=== PATIENT | female | born 1955 | race Caucasian/White ===

== ENCOUNTER 2016-10-20 04:37 | Emergency (ER) | payer BC ==
[~2016-10-20] VITALS: Ht 162.6 cm; Wt 68.2 kg
[~2016-10-20 04:37] MED LIST: ALBUTEROL SULFAT3 M3 IH; ATROVENT I0.2 MG/1 M IH; BENICAR40 MG PO; LIPITOR 10MG10 MG PO; ZITHROMAX Z PA250 MG PO
[2016-10-20 04:44] VITALS: BP 167/117; TEMP 98.7
[2016-10-20] MEDS ORDERED: ASPIRIN 81M81 MG/TA2 PO (04:52)
[2016-10-20] MEDS ORDERED: CALAN120 MG PO (04:53)
[2016-10-20] MEDS ORDERED: RT SPIRIVA18 MCG IH (04:54)
[2016-10-20] MEDS ORDERED: PREDNISONE10 MG PO (04:54)
[2016-10-20] MEDS ORDERED: EDARB4012.5TAB PO (04:54)
[2016-10-20] MEDS ORDERED: ZYRTEC 10MG10 MG PO (04:55)
[2016-10-20] MEDS ORDERED: PRAVACHOL 20MG20 MG PO (04:56)
[2016-10-20] MEDS ORDERED: SINGULAIR 110 MG/TAB PO (04:56)
[2016-10-20] MEDS ORDERED: PROTONIX 40MG T40 MG PO (04:57)
[2016-10-20] MEDS ORDERED: PAMELOR 25MG25 MG PO (04:58)
[2016-10-20 05:31] LABS: INFLUENZA B NEGATIVE
[2016-10-20 05:31] LABS: BASO % 0.4 % (0.0-2.0); EOS # 0.1 (0.0-0.7); EOS % 1.3 % (0-4.0); GRAN # 4.8 (1.4-6.5); GRAN % 64.6 % (42.2-75.2); HEMATOCRIT 43.9 % (37.0-47.0); HEMOGLOBIN 14.9 g/dl (12.5-16.0); LYMPH # 1.6 (1.2-3.4); LYMPH % 21.8 % (20.0-51.0); MEAN CELL VOLUME 95 fl (80.0-100.0); MEAN CORPUSCULAR HEMOGLOBIN 32 pg (27.0-31.0); MEAN CORPUSCULAR HGB CONC 34 g/dl (33.0-37.0); MEAN PLATELET VOLUME 10.1 fl (7.4-10.4); MONO # 0.9 (0.1-0.6); MONO % 11.6 % (1.7-9.3); PLATELET COUNT 209 K/mm3 (130-400); RED BLOOD COUNT 4.64 M/mm3 (4.10-5.30); REDCELL DISTRIBUTION WIDTH-CV 13.1 % (11.5-14.5); WHITE BLOOD COUNT 7.4 K/mm3 (4.8-10.8)
[2016-10-20 05:57] VITALS: PULSE 79
[2016-10-20] MEDS ORDERED: PHENERGAN W/CO120 M1 PO (06:27)
[2016-10-20] MEDS ORDERED: PREDNISONE20 MG PO (06:27)
[2016-10-20] MEDS ORDERED: DOXYCYCLINE 10100 MG PO (06:27)
== END 2016-10-20 07:06 | disposition home or self-care (01) ==
LOC: COL.ER 04:37
PROVIDERS: Emergency Medicine
DX: J20.9 Acute bronchitis, unspecified (principal); I10 Essential (primary) hypertension; F17.210 Nicotine dependence, cigarettes, uncomplicated; R09.02 Hypoxemia
CPT/HCPCS: J7512

== ENCOUNTER 2017-02-15 19:22 | Emergency (ER) | payer BC ==
[~2017-02-15] VITALS: Ht 162.6 cm; Wt 68.2 kg
[~2017-02-15 19:22] MED LIST changes: +ASPIRIN 81M81 MG/TA2 PO; +CALAN120 MG PO; +DOXYCYCLINE 10100 MG PO; +EDARB4012.5TAB PO; +PAMELOR 25MG25 MG PO; +PHENERGAN W/CO120 M1 PO; +PRAVACHOL 20MG20 MG PO; +PREDNISONE10 MG PO; +PREDNISONE20 MG PO; +PROTONIX 40MG T40 MG PO; +RT SPIRIVA18 MCG IH; +SINGULAIR 110 MG/TAB PO; +ZYRTEC 10MG10 MG PO
[2017-02-15 19:24] VITALS: BP 176/102; TEMP 97.5
[2017-02-15] MEDS ORDERED: NORCO 325 MG-51 TAB PO (20:36)
[2017-02-15] MEDS ORDERED: FLEXERIL 1010 MG/TAB PO (20:36)
[2017-02-15 20:49] VITALS: PULSE 74
== END 2017-02-15 20:57 | disposition home or self-care (01) ==
LOC: COL.ER 19:22
DX: M54.41 Lumbago with sciatica, right side (principal); I10 Essential (primary) hypertension; F17.210 Nicotine dependence, cigarettes, uncomplicated
CPT/HCPCS: J1885; J2360

== ENCOUNTER 2017-03-05 08:55 | Outpatient (CLI) | payer BC ==
[2017-03-05] VITALS (7 sets, daily range): BP systolic 139–203; BP diastolic 83–107; PULSE 59–78; TEMP 98.1–98.5
[~2017-03-05] VITALS: Ht 162.6 cm; Wt 68.0 kg
[~2017-03-05 08:55] MED LIST changes: +FLEXERIL 1010 MG/TAB PO; +NORCO 325 MG-51 TAB PO
[2017-03-05] MEDS ORDERED: PERCOCET 325 MG1 TA2 PO (09:10)
[2017-03-05] MEDS ORDERED: ZANAFLEX CAPSULE2 MG PO (09:11)
[2017-03-05] MEDS ORDERED: BYSTOLIC10 MG PO (09:12)
[2017-03-05] MEDS ORDERED: ARTHROTEC 550 MG/TAB PO (09:13)
== END 2017-03-05 16:54 | disposition home or self-care (01) ==
LOC: COL.CAR 08:55
DX: S32.020A Wedge compression fracture of second lumbar vertebra, initial encounter for closed fracture (principal)
CPT/HCPCS: C1713; J2250; J3010